=== PATIENT | male | born 1990 | race Caucasian/White ===

== ENCOUNTER 2020-07-25 12:30 | Emergency (ER) | payer SELFPAY ==
[~2020-07-25] VITALS: Ht 165.1 cm; Wt 78.9 kg
[2020-07-25 12:42] VITALS: BP 126/72
[2020-07-25] MEDS ORDERED: LIDOCAINE MPF 1% 10 MG/ML VIAL INJ ONE (13:40)
[2020-07-25] MEDS ORDERED: IBUPROFEN 400 MG TAB PO ONE (13:40)
--- NOTE | 2020-07-25 13:46 | NUR ---
30 YEAR OLD MALE COMPLAINS OF LACERATION TO RIGHT HAND IN THE MORNING. PT STATES HE CUT HIS HAND ON GLASS BOTTLE. BLEEDING CONTROLLED. PT AOX4, BREATHING EVEN AND UNLABORED, SKIN WARM AND DRY. BED IN LOWEST POSITION, LOCKED, BED RAIL UPX1. PMH - DENIES ALLERGIES - NKA
[2020-07-25] MEDS ORDERED: SILVER NITRATE APPLICATOR 1 EA SWAB TP ONE ×2 (13:59→14:00)
[2020-07-25 14:22] VITALS: BP 126/72
--- NOTE | 2020-07-25 14:22 | NUR ---
Patient discharged with v/s stable. Written and verbal after care instructions given and explained. Patient verbalized understanding. Ambulatory with steady gait. All questions addressed prior to discharge. Advised to follow up with PMD.
== END 2020-07-25 14:22 | disposition home or self-care (01) ==
LOC: MED 12:30
DX: S61.210A Laceration without foreign body of right index finger without damage to nail, initial encounter (principal); W26.8XXA Contact with other sharp object(s), not elsewhere classified, initial encounter; Y93.89 Activity, other specified; Y92.89 Other specified places as the place of occurrence of the external cause; Y99.8 Other external cause status
CPT/HCPCS: 73140; 99283; J2001